=== PATIENT | female | born 1995 | race Caucasian/White ===

== ENCOUNTER 2018-05-03 15:02 | Emergency (ER) | payer OTHER ==
[~2018-05-03] VITALS: Ht 165.1 cm; Wt 104.3 kg
[~2018-05-03 15:02] MED LIST: ACET325UDC; AMOCLA875 PO; AZIT200SU PO; CODBUTACEC PO; IBUP600 PO; IBUP800 PO; Naprosyn500 MG PO; Norco 5-325 Ta1 EACH PO; PROM25 PO; PSEU9.4L; Percocet 5-3251 EACH PO; Phenergan25 M1 PO
[2018-05-03 15:38] LABS: BASOPHILS ABSOLUTE AUTO 0.06 K/mm3 (0.00-0.23); BASOPHILS PERCENT AUTO 1 % (0-2); EOSINOPHILS PERCENT AUTO 3 % (0-6); Hematocrit 40.6 % (33.0-51.0); Hemoglobin 13.8 g/dL (11.5-16.0); IMMATURE GRAN ABSOLUTE AUTO 0.02 K/mm3 (0.00-0.10); IMMATURE GRAN PERCENT AUTO 0 % (0-1); LYMPHOCYTES ABSOLUTE AUTO 3.44 K/mm3 (0.84-5.20); LYMPHOCYTES PERCENT AUTO 37 % (21-46); MONOCYTES ABSOLUTE AUTO 0.63 K/mm3 (0.16-1.47); MONOCYTES PERCENT AUTO 7 % (4-13); Mean Corpuscular HGB 30.9 pg (26.0-34.0); Mean Corpuscular Volume 91 fL (80-100); NEUTROPHILS ABSOLUTE AUTO 4.97 K/mm3 (1.96-9.15); NEUTROPHILS PERCENT AUTO 53 % (41-73); Platelet Count 285 K/mm3 (150-400); RDW Coefficient Variation 11.9 % (11.7-14.2); Red Blood Cell Count 4.46 M/mm3 (3.80-5.20); White Blood Cell Count 9.42 K/mm3 (4.00-11.30)
[2018-05-03 15:53] LABS: Alanine Aminotransfer (ALT/SGP 60 U/L (12-78); Albumin, Blood 3.6 g/dL (3.4-5.0); Alk Phos 104 U/L (50-136); Anion Gap 9 mmol/L (6-16); Aspartate Aminotrans (AST/SGOT 42 U/L (12-37); Bilirubin, Total 0.3 mg/dL (0.1-1.0); Blood Urea Nitrogen 9 mg/dL (8-24); Bun/Creatinine Ratio 13.3 (12.0-20.0); CO2, Blood 24 mmol/L (21-32); Calcium, Blood 8.2 mg/dL (8.5-10.1); Chloride, Blood 107 mmol/L (98-108); Creatinine, Blood 0.68 mg/dL (0.40-1.00); Globulin, Blood 3.7 g/dL (2.2-4.0); Glomerular Filtration Rate >60 (60-); Glucose, Blood 89 mg/dL (70-99); Potassium, Blood 3.5 mmol/L (3.5-5.5); Sodium, Blood 140 mmol/L (136-145); Total Protein, Blood 7.3 g/dL (6.4-8.2)
[2018-05-03 16:27] LABS: Source, Urine Clean Catch
[2018-05-03 16:38] LABS: Bilirubin, Urine Neg (Neg); Blood, Urine 5+ (Neg); Glucose Qualitative, Urine Neg (Neg); Ketones, Urine Neg (Neg); Leukocyte Esterase, Urine 1+ (Neg); Nitrite, Urine Neg (Neg); Protein, Urine Neg (Neg); Urobilinogen, Urine NORM (Normal)
[2018-05-03 17:01] LABS: Appearance, Urine Clear (Clear); Color, Urine Yellow (P-Yellow)
[2018-05-03 17:03] LABS: Squamous Epithelial Cells Few /hpf (Few); White Blood Cells, Urine 0-2 /hpf (0-5)
[2018-05-03 17:04] LABS: Bacteria Not Seen /hpf; Mucus Mod (0-Heavy)
[2018-05-03] MEDS ORDERED: Percocet 5-3251 EACH PO (19:07)
== END 2018-05-03 19:21 | disposition home or self-care (01) ==
LOC: ER 15:02
PROVIDERS: Emergency Medicine
DX: O20.9 Hemorrhage in early pregnancy, unspecified (principal); O16.9 Unspecified maternal hypertension, unspecified trimester
CPT/HCPCS: 36415; 76801; 76817; 80053; 81001; 84702; 84703; 85025; 86900; 86901; 87086; 90471; 96374; 96375; 96376; 99284-25; J1885; J2405; J2790; J7120

== ENCOUNTER → 2018-10-04 | Outpatient (CLI) | payer OTHER | LOC: LAB 17:42 → LAB SHORT 17:42 | DX: N89.8 Other specified noninflammatory disorders of vagina (principal) | CPT/HCPCS: 87070; 87205 ==

== ENCOUNTER → 2019-06-21 | Outpatient (CLI) | payer BC, OTHER ==
[2019-06-24 00:07] LABS: CHLAMYDIA TRACHOMATIS, NAA Negative (Negative); NEISSERIA GONORRHOEAE, NAA Negative (Negative)
== END ==
LOC: LAB SHORT 17:46 → LAB 17:46
PROVIDERS: Registered Nurse Community Health
DX: Z34.00 Encounter for supervision of normal first pregnancy, unspecified trimester (principal)
CPT/HCPCS: 87491; 87591

== ENCOUNTER → 2019-06-21 | Outpatient (CLI) | payer BC, OTHER | LOC: LAB SHORT 16:45 → LAB UCHC 16:45 | PROVIDERS: Registered Nurse Community Health | DX: Z12.4 Encounter for screening for malignant neoplasm of cervix (principal); N76.0 Acute vaginitis | CPT/HCPCS: 87070; 87077; 87186; 87205; G0123 ==

== ENCOUNTER → 2020-01-03 | Outpatient (CLI) | payer OTHER, BC ==
[~2020-01-03] MED LIST changes: +ACET500 PO; +METO10 PO; +Macrobid 100 M100 MG PO
== END ==
LOC: LAB SHORT 19:15 → LAB 19:15
DX: Z34.83 Encounter for supervision of other normal pregnancy, third trimester (principal)
CPT/HCPCS: 87081; 87653

== ENCOUNTER 2020-01-13 13:40 | Observation (INO) | payer OTHER, BC ==
[~2020-01-13] VITALS: Ht 165.1 cm; Wt 107.0 kg
[~2020-01-13 13:40] MED LIST changes: -ACET500 PO; -METO10 PO; -Macrobid 100 M100 MG PO
[2020-01-13 14:33] LABS: BASOPHILS ABSOLUTE AUTO 0.04 K/mm3 (0.00-0.23); BASOPHILS PERCENT AUTO 0 % (0-2); EOSINOPHILS PERCENT AUTO 1 % (0-6); Hemoglobin 12.8 g/dL (11.5-16.0); IMMATURE GRAN ABSOLUTE AUTO 0.03 K/mm3 (0.00-0.10); IMMATURE GRAN PERCENT AUTO 0 % (0-1); LYMPHOCYTES ABSOLUTE AUTO 1.81 K/mm3 (0.84-5.20); LYMPHOCYTES PERCENT AUTO 15 % (21-46); MONOCYTES ABSOLUTE AUTO 0.63 K/mm3 (0.16-1.47); MONOCYTES PERCENT AUTO 5 % (4-13); Mean Corpuscular HGB 31.5 pg (26.0-34.0); Mean Corpuscular HGB Conc 34.6 g/dL (31.5-36.5); Mean Corpuscular Volume 91 fL (80-100); Mean Platelet Volume 10.8 fL (9.1-12.4); NEUTROPHILS ABSOLUTE AUTO 9.35 K/mm3 (1.96-9.15); NEUTROPHILS PERCENT AUTO 78 % (41-73); Platelet Count 238 K/mm3 (150-400); RDW Standard Deviation 42.9 fL (35.1-46.3); Red Blood Cell Count 4.06 M/mm3 (3.80-5.20); White Blood Cell Count 11.96 K/mm3 (4.00-11.30)
[2020-01-13 14:56] LABS: Source, Urine Clean Catch
[2020-01-13 15:01] LABS: Appearance, Urine Cloudy (Clear); Blood, Urine 1+ (Neg); Color, Urine Amber (P-Yellow); Glucose Qualitative, Urine Neg (Neg); Ketones, Urine 1+ (Neg); Leukocyte Esterase, Urine 3+ (Neg); Nitrite, Urine Pos (Neg); Protein, Urine 2+ (Neg); Specific Gravity, Urine 1.015 (1.003-1.022); Urobilinogen, Urine 2+ (Normal)
[2020-01-13 15:13] LABS: Alanine Aminotransfer (ALT/SGP 89 U/L (12-78); Albumin, Blood 2.6 g/dL (3.4-5.0); Albumin/Globulin Ratio 0.7 (0.8-1.8); Alk Phos 234 U/L (50-136); Anion Gap 7 mmol/L (6-16); Aspartate Aminotrans (AST/SGOT 114 U/L (12-37); Bilirubin, Total 1.2 mg/dL (0.1-1.0); Blood Urea Nitrogen 8 mg/dL (8-24); Bun/Creatinine Ratio 16.5 (12.0-20.0); CO2, Blood 23 mmol/L (21-32); Calcium, Blood 9.3 mg/dL (8.5-10.1); Chloride, Blood 108 mmol/L (98-108); Creatinine, Blood 0.49 mg/dL (0.40-1.00); Globulin, Blood 3.9 g/dL (2.2-4.0); Glomerular Filtration Rate >60 (60-); Glucose, Blood 111 mg/dL (70-99); Potassium, Blood 3.6 mmol/L (3.5-5.5); Sodium, Blood 138 mmol/L (136-145); Total Protein, Blood 6.5 g/dL (6.4-8.2)
[2020-01-13 15:14] LABS: Bilirubin, Urine 2+ (Neg)
[2020-01-13 15:16] LABS: Amylase, Blood 357 U/L (25-115)
[2020-01-13 15:17] LABS: White Blood Cells, Urine 25-50 /hpf (0-5)
[2020-01-13 15:18] LABS: Bacteria Mod /hpf; Red Blood Cells, Urine 0-2 /hpf (0-2); Squamous Epithelial Cells Mod /hpf (Few)
[2020-01-14 05:56] LABS: BASOPHILS ABSOLUTE AUTO 0.05 K/mm3 (0.00-0.23); BASOPHILS PERCENT AUTO 1 % (0-2); EOSINOPHILS PERCENT AUTO 3 % (0-6); Hematocrit 39.8 % (33.0-51.0); Hemoglobin 13.4 g/dL (11.5-16.0); IMMATURE GRAN ABSOLUTE AUTO 0.04 K/mm3 (0.00-0.10); IMMATURE GRAN PERCENT AUTO 0 % (0-1); LYMPHOCYTES ABSOLUTE AUTO 2.96 K/mm3 (0.84-5.20); LYMPHOCYTES PERCENT AUTO 27 % (21-46); MONOCYTES PERCENT AUTO 6 % (4-13); Mean Corpuscular HGB 31.4 pg (26.0-34.0); Mean Corpuscular HGB Conc 33.7 g/dL (31.5-36.5); Mean Corpuscular Volume 93 fL (80-100); Mean Platelet Volume 10.8 fL (9.1-12.4); NEUTROPHILS ABSOLUTE AUTO 6.95 K/mm3 (1.96-9.15); NEUTROPHILS PERCENT AUTO 64 % (41-73); Platelet Count 198 K/mm3 (150-400); RDW Coefficient Variation 13.1 % (11.7-14.2); RDW Standard Deviation 45.1 fL (35.1-46.3); Red Blood Cell Count 4.27 M/mm3 (3.80-5.20)
[2020-01-14 06:15] LABS: Alanine Aminotransfer (ALT/SGP 83 U/L (12-78); Albumin, Blood 2.5 g/dL (3.4-5.0); Albumin/Globulin Ratio 0.6 (0.8-1.8); Alk Phos 250 U/L (50-136); Amylase, Blood 54 U/L (25-115); Anion Gap 4 mmol/L (6-16); Aspartate Aminotrans (AST/SGOT 62 U/L (12-37); Bilirubin, Total 0.5 mg/dL (0.1-1.0); Blood Urea Nitrogen 7 mg/dL (8-24); Bun/Creatinine Ratio 13.6 (12.0-20.0); CO2, Blood 27 mmol/L (21-32); Calcium, Blood 8.9 mg/dL (8.5-10.1); Chloride, Blood 109 mmol/L (98-108); Creatinine, Blood 0.52 mg/dL (0.40-1.00); Globulin, Blood 3.9 g/dL (2.2-4.0); Glomerular Filtration Rate >60 (60-); Glucose, Blood 77 mg/dL (70-99); Sodium, Blood 140 mmol/L (136-145); Total Protein, Blood 6.4 g/dL (6.4-8.2)
--- NOTE | 2020-01-14 09:40 | NUR ---
ON MONITOR FOR NST, PLAN TO DISCHARGE HOME AFTER NST, SCRIPT FOR MACROBID AND REGLAN GIVEN TO PT
[2020-01-14] MEDS ORDERED: Macrobid 100 M100 MG PO (10:12)
[2020-01-14] MEDS ORDERED: METO10 PO (10:12)
--- NOTE | 2020-01-14 10:35 | NUR ---
amb out to car, ride here, denies any questions, has scripts
== END 2020-01-14 10:35 | disposition home or self-care (01) ==
LOC: OBS 13:40 → BC 13:41 → OBS 16:42 → BC 16:44
PROVIDERS: Advanced Practice Midwife; ADMIT Nurse Practitioner Obstetrics & Gynecology
DX: O99.613 Diseases of the digestive system complicating pregnancy, third trimester (principal); Z3A.38 38 weeks gestation of pregnancy; K85.10 Biliary acute pancreatitis without necrosis or infection
CPT/HCPCS: 36415; 59025; 76705; 80053; 81001; 81003; 82150; 83690; 85025; 87086; 96360; 96361; G0378; J7120; Q0163; Q2038

== ENCOUNTER 2020-01-17 20:25 | Inpatient (IN) | payer OTHER, BC ==
[~2020-01-17] VITALS: Ht 165.1 cm; Wt 107.3 kg
[~2020-01-17 20:25] MED LIST changes: +METO10 PO; +Macrobid 100 M100 MG PO
[2020-01-17 21:15] LABS: BASOPHILS ABSOLUTE AUTO 0.04 K/mm3 (0.00-0.23); BASOPHILS PERCENT AUTO 0 % (0-2); EOSINOPHILS ABSOLUTE AUTO 0.13 K/mm3 (0.00-0.68); EOSINOPHILS PERCENT AUTO 1 % (0-6); Hematocrit 36.2 % (33.0-51.0); Hemoglobin 12.7 g/dL (11.5-16.0); IMMATURE GRAN ABSOLUTE AUTO 0.07 K/mm3 (0.00-0.10); IMMATURE GRAN PERCENT AUTO 1 % (0-1); LYMPHOCYTES ABSOLUTE AUTO 2.74 K/mm3 (0.84-5.20); LYMPHOCYTES PERCENT AUTO 19 % (21-46); MONOCYTES ABSOLUTE AUTO 0.58 K/mm3 (0.16-1.47); MONOCYTES PERCENT AUTO 4 % (4-13); Mean Corpuscular HGB 31.7 pg (26.0-34.0); Mean Corpuscular HGB Conc 35.1 g/dL (31.5-36.5); Mean Corpuscular Volume 90 fL (80-100); NEUTROPHILS ABSOLUTE AUTO 10.98 K/mm3 (1.96-9.15); NEUTROPHILS PERCENT AUTO 76 % (41-73); Platelet Count 245 K/mm3 (150-400); RDW Coefficient Variation 12.7 % (11.7-14.2); RDW Standard Deviation 41.8 fL (35.1-46.3); Red Blood Cell Count 4.01 M/mm3 (3.80-5.20); White Blood Cell Count 14.54 K/mm3 (4.00-11.30)
[2020-01-17] MEDS ORDERED: ACET500 PO (21:27)
[2020-01-17 21:28] LABS: Alanine Aminotransfer (ALT/SGP 57 U/L (12-78); Albumin, Blood 2.7 g/dL (3.4-5.0); Albumin/Globulin Ratio 0.7 (0.8-1.8); Alk Phos 216 U/L (50-136); Amylase, Blood 36 U/L (25-115); Anion Gap 9 mmol/L (6-16); Aspartate Aminotrans (AST/SGOT 40 U/L (12-37); Bilirubin, Total 0.4 mg/dL (0.1-1.0); Blood Urea Nitrogen 7 mg/dL (8-24); CO2, Blood 22 mmol/L (21-32); Calcium, Blood 8.8 mg/dL (8.5-10.1); Chloride, Blood 106 mmol/L (98-108); Globulin, Blood 3.8 g/dL (2.2-4.0); Glomerular Filtration Rate >60 (60-); Glucose, Blood 122 mg/dL (70-99); Sodium, Blood 137 mmol/L (136-145); Total Protein, Blood 6.5 g/dL (6.4-8.2)
--- NOTE | 2020-01-18 17:44 | NUR ---
1730: OOB TO SHOWER, AMBULATED WELL, VOIDED IN SHOWER.
[2020-01-19 05:52] LABS: Hematocrit 32.9 % (33.0-51.0); Hemoglobin 11.1 g/dL (11.5-16.0); Mean Corpuscular HGB 31.1 pg (26.0-34.0); Mean Corpuscular HGB Conc 33.7 g/dL (31.5-36.5); Mean Corpuscular Volume 92 fL (80-100); Mean Platelet Volume 10.9 fL (9.1-12.4); Platelet Count 176 K/mm3 (150-400); RDW Standard Deviation 43.7 fL (35.1-46.3); Red Blood Cell Count 3.57 M/mm3 (3.80-5.20); White Blood Cell Count 10.73 K/mm3 (4.00-11.30)
[2020-01-19] MEDS ORDERED: IBUP800 PO (12:11)
--- NOTE | 2020-01-19 17:31 | NUR ---
FOLLOW UP APPOINTMENT SCHEDULED. EDUCATED PARENTS ON SIGNS AND SYMPTOMS OF HIGH BILIRUBIN AND WHEN THEY WOULD NEED TO CALL. ANSWERED ALL QUESTIONS AND CONCERNS. PT IS DISCHARGED.
== END 2020-01-19 17:40 | disposition home or self-care (01) | DRG 807 ==
LOC: OBS 20:25 → BC 20:39
PROVIDERS: Advanced Practice Midwife; Nurse Practitioner Obstetrics & Gynecology; ADMIT Registered Nurse Community Health
PROC: 3E0P7VZ Introduction of Hormone into Female Reproductive, Via Natural or Artificial Opening (ICD-10-PCS; 2020-01-17)
PROC: 10E0XZZ Delivery of Products of Conception, External Approach (ICD-10-PCS; principal; 2020-01-18)
PROC: 10907ZC Drainage of Amniotic Fluid, Therapeutic from Products of Conception, Via Natural or Artificial Opening (ICD-10-PCS; 2020-01-18)
DX: O99.62 Diseases of the digestive system complicating childbirth (principal); Z37.0 Single live birth; K80.20 Calculus of gallbladder without cholecystitis without obstruction; Z3A.39 39 weeks gestation of pregnancy; O76 Abnormality in fetal heart rate and rhythm complicating labor and delivery; O69.81X0 Labor and delivery complicated by cord around neck, without compression, not applicable or unspecified
CPT/HCPCS: 36415; 80053; 82150; 83690; 85025; 85027; 86850; 86900; 86901; A9270; J1885; J2210; J2405; J2590; J3010; J7120

== ENCOUNTER 2020-03-30 07:04 | Day surgery (SDC) | payer BC, OTHER ==
[~2020-03-30] VITALS: Ht 165.1 cm; Wt 97.5 kg
[~2020-03-30 07:04] MED LIST changes: +ACET500 PO
--- NOTE | 2020-03-30 07:43 | NUR ---
Ambulatory in Day Surgery History, Chart, Medications and Allergies reviewed before start of procedure. Lungs clear T/O to Auscultation. Pre-Op teaching done. Pt verbalizes understanding.
--- NOTE | 2020-03-30 11:15 | NUR ---
DISCHARGE SUMMARY PT A&OX4, VSS, DENIES N&V, PERLA PO H20, PAIN 5/10 WITH 5 MG NORCO. DC INSTRUCTIONS PROVIDED. PT REP UNDERSTANDING THOSE INSTRUCIONS, INCLUDING WHEN TO CALL SURGEON, LEAVE STERIS IN PLACE UNTIL FU APPT, OKAY TO SHOWER IN 24 HOURS, NO TUB/JACUZZI, NO LIFTING >10 LBS, NO PUSHING, PULLING. ABD BINDER ON. WC PT OUT TO DROP [employer] IV DC'D.
== END 2020-03-30 23:19 | disposition home or self-care (01) ==
LOC: ORSCMMR 07:04 → ORD 08:30 → ORSCMMR 08:30
PROVIDERS: Surgery
PROC: 0FT44ZZ Resection of Gallbladder, Percutaneous Endoscopic Approach (ICD-10-PCS; principal; 2020-03-30 08:30)
PROC: BF031ZZ Plain Radiography of Gallbladder and Bile Ducts using Low Osmolar Contrast (ICD-10-PCS; principal; 2020-03-30 08:30)
DX: K80.10 Calculus of gallbladder with chronic cholecystitis without obstruction (principal); Z87.891 Personal history of nicotine dependence; E66.9 Obesity, unspecified; Z68.35 Body mass index [BMI] 35.0-35.9, adult; Z79.899 Other long term (current) drug therapy; Z87.19 Personal history of other diseases of the digestive system
CPT/HCPCS: 74300; 88304; A9270-GY; C1729; J0690; J1100; J1885; J2250; J2405; J2704; J3010; J7120

== ENCOUNTER → 2020-07-17 | Outpatient (CLI) | payer BC, OTHER ==
[~2020-07-17] MED LIST changes: +Adipex-P37.5 MG PO; +ONDA4 PO; +Spironolactone50 MG PO; +Ventolin/Prove6.7 GM
[2020-07-19 17:08] LABS: CHLAMYDIA BY NAA Negative (Negative); GONOCOCCUS BY NAA Negative (Negative); TRICH VAG BY NAA Negative (Negative)
== END ==
LOC: PLD 12:01 → LAB SHORT 12:01
PROVIDERS: Registered Nurse Community Health
DX: Z11.59 Encounter for screening for other viral diseases (principal); N89.8 Other specified noninflammatory disorders of vagina
CPT/HCPCS: 87070; 87205; 87491; 87591; 87661

== ENCOUNTER 2020-09-24 09:59 | Day surgery (SDC) | payer BC, OTHER ==
[~2020-09-24] VITALS: Ht 165.1 cm; Wt 89.5 kg
== END 2020-09-24 12:20 | disposition home or self-care (01) ==
LOC: ORSCSDS 09:59
PROVIDERS: Internal Medicine Gastroenterology
PROC: 0DJD8ZZ Inspection of Lower Intestinal Tract, Via Natural or Artificial Opening Endoscopic (ICD-10-PCS; principal; 2020-09-24 11:15)
DX: K62.5 Hemorrhage of anus and rectum (principal); K64.8 Other hemorrhoids; F41.8 Other specified anxiety disorders; F43.10 Post-traumatic stress disorder, unspecified; E66.9 Obesity, unspecified; Z68.33 Body mass index [BMI] 33.0-33.9, adult; Z79.899 Other long term (current) drug therapy
CPT/HCPCS: J2250; J2704; J7120

== ENCOUNTER → 2021-04-02 | Outpatient (CLI) | payer OTHER ==
[2021-04-02 18:51] LABS: BASOPHILS ABSOLUTE AUTO 0.05 K/mm3 (0.00-0.23); BASOPHILS PERCENT AUTO 1 % (0-2); EOSINOPHILS ABSOLUTE AUTO 0.16 K/mm3 (0.00-0.68); EOSINOPHILS PERCENT AUTO 2 % (0-6); Hematocrit 39.1 % (33.0-51.0); Hemoglobin 13.7 g/dL (11.5-16.0); IMMATURE GRAN ABSOLUTE AUTO 0.03 K/mm3 (0.00-0.10); IMMATURE GRAN PERCENT AUTO 0 % (0-1); LYMPHOCYTES PERCENT AUTO 32 % (21-46); MONOCYTES ABSOLUTE AUTO 0.48 K/mm3 (0.16-1.47); MONOCYTES PERCENT AUTO 5 % (4-13); Mean Corpuscular HGB 30.8 pg (26.0-34.0); Mean Corpuscular Volume 88 fL (80-100); Mean Platelet Volume 10.3 fL (9.1-12.4); NEUTROPHILS ABSOLUTE AUTO 6.04 K/mm3 (1.96-9.15); NEUTROPHILS PERCENT AUTO 61 % (41-73); Platelet Count 304 K/mm3 (150-400); RDW Coefficient Variation 11.8 % (11.7-14.2); RDW Standard Deviation 37.6 fL (35.1-46.3); Red Blood Cell Count 4.45 M/mm3 (3.80-5.20); White Blood Cell Count 9.96 K/mm3 (4.00-11.30)
[2021-04-02 19:09] LABS: Alanine Aminotransfer (ALT/SGP 27 U/L (12-78); Albumin, Blood 4.1 g/dL (3.4-5.0); Albumin/Globulin Ratio 1.1 (0.8-1.8); Alk Phos 75 U/L (50-136); Anion Gap 7 mmol/L (6-16); Aspartate Aminotrans (AST/SGOT 15 U/L (12-37); Bilirubin, Total 0.7 mg/dL (0.1-1.0); Blood Urea Nitrogen 9 mg/dL (8-24); Bun/Creatinine Ratio 13.2 (12.0-20.0); CO2, Blood 26 mmol/L (21-32); Calcium, Blood 8.9 mg/dL (8.5-10.1); Chloride, Blood 104 mmol/L (98-108); Creatinine, Blood 0.68 mg/dL (0.40-1.00); Free Thyroxine 1.24 ng/dL (0.70-1.60); Globulin, Blood 3.7 g/dL (2.2-4.0); Glomerular Filtration Rate >60 (60-); Glucose, Blood 90 mg/dL (70-99); Potassium, Blood 3.6 mmol/L (3.5-5.5); Prolactin 8.1 ng/mL; Sodium, Blood 137 mmol/L (136-145); Total Protein, Blood 7.8 g/dL (6.4-8.2)
[2021-04-02 19:12] LABS: Triiodothyronine, Free 3.29 pg/mL (2.18-3.98)
[2021-04-03 11:08] LABS: Candida species (DNA Probe) Negative (NEGATIVE); G. vaginalis (DNA Probe) Negative (NEGATIVE); T. vaginalis (DNA Probe) Negative (NEGATIVE)
[2021-04-04 07:09] LABS: CHLAMYDIA BY NAA Negative (Negative); GONOCOCCUS BY NAA Negative (Negative); TRICH VAG BY NAA Negative (Negative)
== END ==
LOC: LAB SHORT 15:30
PROVIDERS: Registered Nurse Community Health
DX: L68.0 Hirsutism (principal); R53.83 Other fatigue; R10.2 Pelvic and perineal pain
CPT/HCPCS: 80053; 84146; 84439; 84443; 84481; 85025; 87480; 87491; 87510; 87591; 87660; 87661

== ENCOUNTER 2021-04-09 19:38 | Emergency (ER) | payer BC, OTHER ==
[~2021-04-09] VITALS: Ht 165.1 cm; Wt 84.8 kg
[2021-04-09 20:42] LABS: BASOPHILS ABSOLUTE AUTO 0.07 K/mm3 (0.00-0.23); BASOPHILS PERCENT AUTO 1 % (0-2); EOSINOPHILS ABSOLUTE AUTO 0.17 K/mm3 (0.00-0.68); EOSINOPHILS PERCENT AUTO 2 % (0-6); Hematocrit 38.4 % (33.0-51.0); Hemoglobin 13.8 g/dL (11.5-16.0); IMMATURE GRAN ABSOLUTE AUTO 0.03 K/mm3 (0.00-0.10); IMMATURE GRAN PERCENT AUTO 0 % (0-1); LYMPHOCYTES ABSOLUTE AUTO 3.97 K/mm3 (0.84-5.20); LYMPHOCYTES PERCENT AUTO 36 % (21-46); MONOCYTES ABSOLUTE AUTO 0.53 K/mm3 (0.16-1.47); MONOCYTES PERCENT AUTO 5 % (4-13); Mean Corpuscular HGB 31.4 pg (26.0-34.0); Mean Corpuscular HGB Conc 35.9 g/dL (31.5-36.5); Mean Corpuscular Volume 87 fL (80-100); NEUTROPHILS ABSOLUTE AUTO 6.18 K/mm3 (1.96-9.15); NEUTROPHILS PERCENT AUTO 56 % (41-73); Platelet Count 319 K/mm3 (150-400); RDW Coefficient Variation 11.9 % (11.7-14.2); White Blood Cell Count 10.95 K/mm3 (4.00-11.30)
[2021-04-09 20:52] LABS: Source, Urine Clean Catch
[2021-04-09 20:55] LABS: Bilirubin, Urine Neg (Neg); Blood, Urine Neg (Neg); Glucose Qualitative, Urine Neg (Neg); Ketones, Urine Neg (Neg); Leukocyte Esterase, Urine Neg (Neg); Nitrite, Urine Neg (Neg); Protein, Urine Neg (Neg); Urobilinogen, Urine NORM (Normal); pH, Urine 6.5 (5.0-8.0)
[2021-04-09 21:01] LABS: Appearance, Urine Clear (Clear); Color, Urine Yellow (P-Yellow)
[2021-04-09 21:04] LABS: Alanine Aminotransfer (ALT/SGP 27 U/L (12-78); Albumin/Globulin Ratio 1.2 (0.8-1.8); Alk Phos 67 U/L (50-136); Anion Gap 6 mmol/L (6-16); Aspartate Aminotrans (AST/SGOT 13 U/L (12-37); Bilirubin, Total 0.4 mg/dL (0.1-1.0); Blood Urea Nitrogen 8 mg/dL (8-24); Bun/Creatinine Ratio 12.2 (12.0-20.0); CO2, Blood 25 mmol/L (21-32); Calcium, Blood 9.1 mg/dL (8.5-10.1); Chloride, Blood 107 mmol/L (98-108); Creatinine, Blood 0.66 mg/dL (0.40-1.00); Globulin, Blood 3.3 g/dL (2.2-4.0); Glomerular Filtration Rate >60 (60-); Glucose, Blood 86 mg/dL (70-99); Potassium, Blood 3.4 mmol/L (3.5-5.5); Sodium, Blood 138 mmol/L (136-145); Total Protein, Blood 7.3 g/dL (6.4-8.2)
== END 2021-04-09 22:33 | disposition left against medical advice (07) ==
LOC: ER 19:38
PROVIDERS: Physician Assistant
DX: R10.10 Upper abdominal pain, unspecified (principal); R11.2 Nausea with vomiting, unspecified
CPT/HCPCS: 36415; 80053; 81003; 83690; 84703; 85025; 99284

== ENCOUNTER → 2021-09-04 | Outpatient (CLI) | payer BC, OTHER | LOC: LAB SHORT 13:03 → LAB 13:03 | DX: N92.5 Other specified irregular menstruation (principal) | CPT/HCPCS: 84702 ==

== ENCOUNTER 2021-11-23 19:18 | Emergency (ER) | payer BC, OTHER ==
[~2021-11-23] VITALS: Ht 165.1 cm; Wt 81.7 kg
[2021-11-23] MEDS ORDERED: ONDA4ODT (19:28)
[2021-11-23 20:07] LABS: BASOPHILS ABSOLUTE AUTO 0.04 K/mm3 (0.00-0.23); BASOPHILS PERCENT AUTO 0 % (0-2); EOSINOPHILS ABSOLUTE AUTO 0.08 K/mm3 (0.00-0.68); EOSINOPHILS PERCENT AUTO 1 % (0-6); Hematocrit 32.1 % (33.0-51.0); Hemoglobin 11.4 g/dL (11.5-16.0); IMMATURE GRAN ABSOLUTE AUTO 0.04 K/mm3 (0.00-0.10); IMMATURE GRAN PERCENT AUTO 0 % (0-1); LYMPHOCYTES ABSOLUTE AUTO 1.89 K/mm3 (0.84-5.20); LYMPHOCYTES PERCENT AUTO 15 % (21-46); MONOCYTES ABSOLUTE AUTO 0.52 K/mm3 (0.16-1.47); MONOCYTES PERCENT AUTO 4 % (4-13); Mean Corpuscular HGB 31.2 pg (26.0-34.0); Mean Corpuscular HGB Conc 35.5 g/dL (31.5-36.5); Mean Corpuscular Volume 88 fL (80-100); Mean Platelet Volume 9.9 fL (9.1-12.4); NEUTROPHILS ABSOLUTE AUTO 10.03 K/mm3 (1.96-9.15); NEUTROPHILS PERCENT AUTO 80 % (41-73); Platelet Count 239 K/mm3 (150-400); RDW Coefficient Variation 12.2 % (11.7-14.2); RDW Standard Deviation 39.4 fL (35.1-46.3); Red Blood Cell Count 3.65 M/mm3 (3.80-5.20)
[2021-11-23 20:25] LABS: Albumin/Globulin Ratio 0.9 (0.8-1.8); Bilirubin, Total 0.5 mg/dL (0.1-1.0); Bun/Creatinine Ratio 18.2 (12.0-20.0); Calcium, Blood 8.5 mg/dL (8.5-10.1); Creatinine, Blood 0.44 mg/dL (0.40-1.00); Globulin, Blood 3.3 g/dL (2.2-4.0); Potassium, Blood 3.2 mmol/L (3.5-5.5); Total Protein, Blood 6.3 g/dL (6.4-8.2)
== END 2021-11-23 22:19 | disposition home or self-care (01) ==
LOC: ER 19:18
PROVIDERS: Student in an Organized Health Care Education/Training Program
DX: O21.9 Vomiting of pregnancy, unspecified (principal); O99.891 Other specified diseases and conditions complicating pregnancy; R55 Syncope and collapse; O99.512 Diseases of the respiratory system complicating pregnancy, second trimester; J45.909 Unspecified asthma, uncomplicated; Z3A.17 17 weeks gestation of pregnancy; Z87.891 Personal history of nicotine dependence; Z79.899 Other long term (current) drug therapy
CPT/HCPCS: 80053; 85025; 93005; 93010; J2405; J7030

== ENCOUNTER → 2022-02-19 | Outpatient (CLI) | payer BC, OTHER ==
[~2022-02-19] MED LIST changes: +ONDA4ODT
[2022-02-19 12:29] LABS: Hematocrit 35.9 % (33.0-51.0); Hemoglobin 12.2 g/dL (11.5-16.0)
== END | disposition home or self-care (01) ==
LOC: LAB 11:44 → LAB SHORT 11:44
PROVIDERS: Registered Nurse Community Health
DX: Z34.91 Encounter for supervision of normal pregnancy, unspecified, first trimester (principal)
CPT/HCPCS: 82950; 85014; 85018

== ENCOUNTER 2022-05-07 15:00 | Inpatient (IN) | payer BC, OTHER ==
[~2022-05-07] VITALS: Ht 152.4 cm; Wt 97.0 kg
[2022-05-07 16:15] LABS: BASOPHILS ABSOLUTE AUTO 0.03 K/mm3 (0.00-0.23); BASOPHILS PERCENT AUTO 0 % (0-2); EOSINOPHILS ABSOLUTE AUTO 0.04 K/mm3 (0.00-0.68); EOSINOPHILS PERCENT AUTO 0 % (0-6); Hemoglobin 12.6 g/dL (11.5-16.0); IMMATURE GRAN ABSOLUTE AUTO 0.05 K/mm3 (0.00-0.10); IMMATURE GRAN PERCENT AUTO 0 % (0-1); LYMPHOCYTES ABSOLUTE AUTO 2.09 K/mm3 (0.84-5.20); LYMPHOCYTES PERCENT AUTO 16 % (21-46); MONOCYTES ABSOLUTE AUTO 0.53 K/mm3 (0.16-1.47); MONOCYTES PERCENT AUTO 4 % (4-13); Mean Corpuscular Volume 89 fL (80-100); Mean Platelet Volume 9.6 fL (9.1-12.4); NEUTROPHILS ABSOLUTE AUTO 10.36 K/mm3 (1.96-9.15); NEUTROPHILS PERCENT AUTO 79 % (41-73); Platelet Count 246 K/mm3 (150-400); RDW Coefficient Variation 13.2 % (11.7-14.2); RDW Standard Deviation 43.8 fL (35.1-46.3); Red Blood Cell Count 3.94 M/mm3 (3.80-5.20)
[2022-05-07] MEDS ORDERED: ACYC400 PO (16:15)
[2022-05-08 05:37] LABS: Hematocrit 31.6 % (33.0-51.0); Hemoglobin 11.5 g/dL (11.5-16.0); Mean Corpuscular HGB 32.5 pg (26.0-34.0); Mean Corpuscular HGB Conc 36.4 g/dL (31.5-36.5); Mean Corpuscular Volume 89 fL (80-100); Mean Platelet Volume 9.7 fL (9.1-12.4); Platelet Count 197 K/mm3 (150-400); RDW Coefficient Variation 13.2 % (11.7-14.2); RDW Standard Deviation 43.7 fL (35.1-46.3); Red Blood Cell Count 3.54 M/mm3 (3.80-5.20); White Blood Cell Count 11.52 K/mm3 (4.00-11.30)
[2022-05-09] MEDS ORDERED: PRENATAL TABLE1 EAC2 PO (10:49)
--- NOTE | 2022-05-09 11:08 | NUR ---
D/C INSTRUCTIONS DISCUSSED AND SIGNED. Lesley ROMO CNM AT BEDSIDE. PLAN OF CARE OF MENTAL WELLNESS AND STABILITY DISCUSSED. DISCUSSED WITH PROVIDER THE [place] SCORE OF 19. PT INFORMED A MANIPULATOR OPERATOR WILL BE COMING BY TO MEET WITH HER. PT VERBALIZES UNDERSTANDING AND CONSENT. LUCIANO AND PT DISCUSS PLAN OF CARE FOR D/C. PT VERY CLOSE WITH LUCIANO AND VERBALIZES UNDERSTANDING. PT'S MOTHER IS IN THE ROOM AND ASKS APPROPRIATE QUESTIONS AND VERBALIZES UNDERSTANDING OF PLAN OF CARE.
--- NOTE | 2022-05-09 11:42 | NUR ---
COFFEE WEIGHER, DAMON, HERE TO SEE PT. DAMON UPDATED ON PT'S SOCIAL INFORMATION BUT DAMON WILL R/T IN AN HOUR TO SEE PT PT IS GIVING NB A BATH AND DOING SOME NB CARE. DAMON WAS HAPPY TO RETURN AT ANOTHER TIME TO TALK WITH THE PT.
--- NOTE | 2022-05-09 13:37 | NUR ---
Celestino JOSE FROM [facility] HERE TO SEE PATIENT. SHE IS CLEARED FOR DISCHARGE. PATIENT HAS GOOD SUPPORT SYSTEM AND HAS A COUNSELING APPOINTMENT NEXT WEEK
== END 2022-05-09 15:05 | disposition home or self-care (01) | DRG 806 ==
LOC: OBS 15:00 → BC 15:00 → OBS 15:17 → BC 15:20
PROVIDERS: ADMIT Registered Nurse Community Health
PROC: 10E0XZZ Delivery of Products of Conception, External Approach (ICD-10-PCS; principal; 2022-05-07)
PROC: 10907ZC Drainage of Amniotic Fluid, Therapeutic from Products of Conception, Via Natural or Artificial Opening (ICD-10-PCS; 2022-05-07)
DX: O48.0 Post-term pregnancy (principal); O98.32 Other infections with a predominantly sexual mode of transmission complicating childbirth; Z37.0 Single live birth; A60.09 Herpesviral infection of other urogenital tract; O99.344 Other mental disorders complicating childbirth; F41.9 Anxiety disorder, unspecified; F32.A Depression, unspecified; O99.214 Obesity complicating childbirth; O76 Abnormality in fetal heart rate and rhythm complicating labor and delivery; Z90.49 Acquired absence of other specified parts of digestive tract; Z87.09 Personal history of other diseases of the respiratory system; Z79.899 Other long term (current) drug therapy; Z3A.40 40 weeks gestation of pregnancy
CPT/HCPCS: 36415; 85025; 85027; 86850; 86900; 86901; A9270; J2210; J2590

== ENCOUNTER → 2024-07-06 | Outpatient (CLI) | payer OTHER ==
[~2024-07-06] MED LIST changes: +ACYC400 PO; +HYDR1TAB94 PO; +PRENATAL TABLE1 EAC2 PO; +VICTOZA 2-0.6 MG/0.1 SQ
[2024-07-06 17:17] LABS: Creatinine, Urine Random 83.8 mg/dL (27.00-270.00); Microalb/Creat Ratio UR, Rand 9.021 mg/g (0.000-30.000); Microalbumin, Random Urine 7.56 mg/L (0.000-20.000)
== END | disposition home or self-care (01) ==
LOC: LAB SHORT 14:15 → LAB 14:15
PROVIDERS: Family Medicine
DX: R80.9 Proteinuria, unspecified (principal)
CPT/HCPCS: 82043; 82570